=== PATIENT | female | born 1975 | race Caucasian/White ===

== ENCOUNTER 2017-04-20 10:19 | Emergency (ER) | payer BC, MEDICAID ==
[~2017-04-20] VITALS: Ht 160 cm; Wt 89.0 kg
[~2017-04-20 10:19] MED LIST: CALC600T5 PO; FERR-31 PO; FOLI1TAB PO; PNV1TABL50 PO
[2017-04-20 10:22] VITALS: Ht 160 cm; Wt 89.0 kg
[2017-04-20] MEDS ORDERED: HYDROCODONE/APAP (5/325) TAB PO ONE (11:30)
--- NOTE | 2017-04-20 11:50 | RADRPT ---
PROCEDURE: XR Hand 3 Views. CLINICAL INDICATION: Left hand pain and trauma. TECHNIQUE: AP, oblique and lateral views of the left hand were obtained. COMPARISON: No prior studies are available for comparison. FINDINGS: Transverse, mildly displaced and angulated fracture through the proximal shaft of the fifth proximal phalanx is observed. The remaining osseous structures appear intact. No destructive bony lesions a re observed. The interosseous spaces are unremarkable. Soft tissues surrounding the hand appear no rmal. IMPRESSION: Fifth proximal phalanx fracture. If there is high clinical suspicion for additional traumatic injury, further evaluation with CT shou ld be considered. RPTAT: AA .Jameel Maxwell MD, Date Time Electronically viewed and signed by .Jameel Maxwell MD, on 04/20/2017 11:50 .P/
[2017-04-20] MEDS ORDERED: HYDR-906 PO (12:16)
[2017-04-20] MEDS ORDERED: IBUP-1542 PO (12:17)
--- NOTE | 2017-04-20 12:33 | ERD ---
ER Documentation Chief Complaint Date/Time DATE: 04/20/17 TIME: 12:27 Chief Complaint left hand pain after a fall HPI This is a 42-year-old female that presents to the ER for left fifth digit pain. Patient fell down the stairs yesterday and hurt her left hand. Patient states that pain has gotten significantly worse and area is now bruised and swollen. She denies any numbness or tingling of her hand. She denies any fevers or chills. ROS 12 point review of systems was done, all negative except per HPI. Medications Home Meds Active Scripts Ibuprofen* (Motrin*) 600 Mg Tab, 600 MG PO Q6, #30 TAB Prov:ALVAROKITA Gong 04/20/17 Hydrocodone/Acetaminophen (Wadsworth 5-325 Tablet) 1 Each Tablet, 1 TAB PO Q6H Y for PAIN, #15 TAB Prov:ALVAROKITA Gong 04/20/17 Reported Medications Calcium Carbonate (CALCIUM) 600 Mg Tablet, 600 MG PO DAILY 10/26/13 Folic Acid/Multivits-Min/Lut (PV MULTIVITAL SITKA SILVER) 1 Each Tab.chew, 1 EACH PO DAILY, TAB.CHEW 10/26/13 Ferrous Sulfate (Iron Supplement) 1 Tab Tablet, 1 TAB PO DAILY 10/26/13 Pnv With Ca,No.71/Iron/Fa (PRENAPLUS TABLET) 1 Each Tablet, 1 EACH PO DAILY 10/26/13 Allergies Allergies: Uncoded Allergies: NONE (Allergy, Unknown, 12/11/13) PMhx/Soc Hx Miscellaneous Medical Probl: Yes (THYROID) Hx Alcohol Use: No Hx Substance Use: No Hx Tobacco Use: No Physical Exam Vitals Vital Signs Date Time Temp Pulse Resp B/P Pulse Ox O2 Delivery O2 Flow Rate FiO2 04/20/17 10:22 98.2 78 18 163/77 99 Physical Exam GENERAL: The patient is well developed and appropriate for usual state of health , in no apparent distress. HEENT: Atraumatic. CHEST: Clear to auscultation bilaterally. There are no rales, wheezes or rhonchi. HEART: Regular rate and rhythm. No murmurs, clicks, rubs or gallops. BACK: No midline or flank tenderness. EXTREMITIES: Left hand: Patient is tender to palpation to the fifth proximal phalanx there is an area of ecchymosis throughout the entire phalanx. Painful range of motion of PIP and DIP joints. no swelling. n/v intact. radial ulnar and median nerves are intacct no wrist pain, normal ROM no snuffbox tenderness NEURO: Alert and oriented. Results 24 hrs Current Medications Medications (Trade) Dose Ordered Sig/Collin Route PRN Reason Start Time Stop Time Status Last Admin Dose Admin Acetaminophen/ Hydrocodone Bitart ([place]adsworth (5/325)) 1 tab ONCE ONCE PO 04/20/17 11:30 04/20/17 11:31 DC 04/20/17 11:32 Procedures/MDM This is a 43-year-old female presents to the ER with left fifth digit pain, patient does have a fracture of the finger. Patient's finger was charan taped and she was put in a metal splint she was neurovascularly intact before and after splint application suspicion for acute compartment syndrome, infectious process is low. Patient is afebrile and extremely well-appearing. She will be sent home with Wadsworth and ibuprofen. She was told to follow-up with her primary care doctor within 1-2 days and go to an orthopedic doctor as soon as possible. She is to return to ER sooner if symptoms worsen. My medical decision making shared with the patient she understands and agrees with plan. Departure Diagnosis: Primary Impression: Finger fracture, left Condition: Stable Patient Instructions: Finger and Toe Fractures (Broken Finger or Toe) [facility] Usted se fu hecho un examen mdico de control que le indica que no est en bree condicin que requiera tratamiento urgente en el Departamento de Emergencia. Un estudio ms profundo y el tratamiento de orosco condicin pueden esperar sin ningn riesgo hasta que usted sea atendida/o en el consultorio de orosco mdico o bree cl tameka. Es responsabilidad suya arreglar bree albert para el seguimiento del jaqueline. MANEJO DE CONDICIONES NO URGENTES EN EL FUTURO 1) Si usted tiene un mdico de atencin primaria: Usted debera llamar a orosco mdico de atencin primaria antes de venir al departamento de emergencia. Despus de las horas de consultorio, orosco doctor o orosco asociado/a est disponible por telfono. El mdico o enfermero de santiago en el servicio telefnico puede asesorarle por itzel medio para atender el problema, o jaqueline contrario se puede programar bree albert. 2) Si usted no tiene un mdico de atencin primaria: Llame al mdico o clnica de referencia que aparece abajo luis las horas de consultorio para hacer bree albert para que le vean. CLINICAS: [place] [address] [phone] [facility] [phone] [facility] [phone] [facility]. [place] [address] [phone] [facility]. [place] [id number] [phone] [place] [id number] [phone] Additional Instructions: Llame al doctor MAANA y rosa isela bree ALBERT PARA DENTRO DE 1-2 HILTON.Dgale a la secretaria que nosotros le instruimos hacer esta albert.Avise o llame si orosco condicin se empeora antes de la albert. Regresa aqui si peor o no mejor. TIENES QUE IR A KIN A UN ORTOPEDICO! KITA JOHN Apr 20, 2017 12:33
== END 2017-04-20 12:25 | disposition home or self-care (01) ==
LOC: FTE 10:19
DX: S92.512A Displaced fracture of proximal phalanx of left lesser toe(s), initial encounter for closed fracture (principal); W10.9XXA Fall (on) (from) unspecified stairs and steps, initial encounter; Y92.9 Unspecified place or not applicable
CPT/HCPCS: 29130; 73130; Z7502; Z7610